=== PATIENT | male | born 1970 | race Caucasian/White ===

== ENCOUNTER 2019-08-14 13:09 | Emergency (ER) | payer MEDICAID ==
[~2019-08-14] VITALS: Ht 172.7 cm; Wt 58.0 kg
[2019-08-14] MEDS ORDERED: IBUP-1984 PO (14:37)
[2019-08-14] MEDS ORDERED: naproxen sodium 220mg tablet PO SCH ×2 (14:38→20:00)
[2019-08-14 14:52] VITALS: BP 130/78
== END 2019-08-14 14:54 | disposition home or self-care (01) ==
LOC: ER 13:11
DX: S00.83XA Contusion of other part of head, initial encounter (principal); F17.200 Nicotine dependence, unspecified, uncomplicated; Z98.890 Other specified postprocedural states; Y04.2XXA Assault by strike against or bumped into by another person, initial encounter; Y93.89 Activity, other specified; Y92.89 Other specified places as the place of occurrence of the external cause; Y99.8 Other external cause status
CPT/HCPCS: 99282

== ENCOUNTER 2024-08-24 19:31 | Emergency (ER) | payer SELFPAY ==
[~2024-08-24] VITALS: Ht 172.7 cm; Wt 59.1 kg
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
--- NOTE | 2024-08-24 19:50 | ELECTROCARDIOGRAPH REPORT ---
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
[2024-08-24 20:25] VITALS: BP 125/74; PULSE 98; RESP 18; TEMP 98.2; O2SAT 99
== END 2024-08-24 20:42 ==
LOC: ER 19:32
DX: R06.4 Hyperventilation (principal); R55 Syncope and collapse; J44.9 Chronic obstructive pulmonary disease, unspecified
CPT/HCPCS: 93005; 99283